=== PATIENT | female | born 1970 | race Hispanic/Latino ===

== ENCOUNTER 2018-01-22 17:45 | Emergency (ER) | payer MEDICAID, OTHER ==
[2018-01-22] MEDS ORDERED: GUAIFENESIN SUGAR-FREE 100 MG/5 ML UDCUP ONE (18:12)
[2018-01-22] MEDS ORDERED: DEXAMETHASONE SOD PHOSPHATE 10MG/ML 1ML VIAL ONE (18:13)
[2018-01-22] MEDS ORDERED: IPRATROPIUM/ALBUTEROL SULFATE 3 ML SOLUTION IH ONE (18:14)
[2018-01-22] MEDS ORDERED: ALBUTEROL SULFATE 0.083% 2.5 MG/3 ML INH IH ONE (19:14)
== END 2018-01-22 20:53 | disposition home or self-care (01) ==
LOC: EDH 17:45
DX: J20.9 Acute bronchitis, unspecified (principal); Z98.890 Other specified postprocedural states
CPT/HCPCS: 71046; 94640 ×2; 96372; 99284; J1100

== ENCOUNTER → 2018-03-04 | Outpatient (CLI) | payer OTHER ==
[2018-03-04 08:23] LABS: BASOPHILS % (AUTO) 1.1 % (0.0-5.0); EOSINOPHILS % (AUTO) 4.3 % (0.0-8.0); LYMPHOCYTES % (AUTO) 23.2 % (21.0-51.0); MEAN CORPUSCULAR HEMOGLOBIN 30.5 pg (27.0-33.0); MEAN CORPUSCULAR HGB CONC 32.6 g/dL (32.0-36.0); MEAN CORPUSCULAR VOLUME 93.5 fL (79-99); MONOCYTES % (AUTO) 2.5 % (3.0-13.0); NEUTROPHILS % (AUTO) 68.9 % (40.0-77.0); NUCLEATED RED BLOOD CELLS 0.1 % (0.0-0.19); PLATELET COUNT (AUTO) 346 K/uL (130-400); RED BLOOD CELL COUNT(AUTO) 4.38 MIL/uL (4.00-5.50); WHITE BLOOD COUNT (AUTO) 5.2 K/uL (4.8-10.8)
[2018-03-04 08:57] LABS: ALBUMIN 3.2 g/dL (3.5-5.0); BILIRUBIN,TOTAL 0.4 mg/dL (0.2-1.0); CREATININE 0.6 mg/dL (0.5-1.5); CRP QUANTITATIVE 14.3 mg/L (0.00-9.0); POTASSIUM 3.6 mmol/L (3.5-5.1); THYROID STIMULATING HORMONE 1.16 uIU/mL (0.36-3.74); TOTAL PROTEIN, SERUM 7.6 g/dL (6.0-8.3)
[2018-03-04 09:23] LABS: ERYTHROCYTE SEDIMENTATION RATE 27 MM/HR (0-20)
== END | disposition home or self-care (01) ==
LOC: LAB 07:20
PROVIDERS: ATTEND Internal Medicine
DX: Z13.220 Encounter for screening for lipoid disorders (principal); Z13.1 Encounter for screening for diabetes mellitus; M19.90 Unspecified osteoarthritis, unspecified site; M25.50 Pain in unspecified joint
CPT/HCPCS: 36415; 80053; 80061; 83036; 84443; 85025; 85651; 86038; 86140; 86215; 86235

== ENCOUNTER 2018-03-28 16:05 | Emergency (ER) | payer OTHER ==
[2018-03-28] MEDS ORDERED: ACETAMINOPHEN 325 MG TAB ONE (16:39)
== END 2018-03-28 16:45 | disposition home or self-care (01) ==
LOC: EDH 16:05
DX: S60.222A Contusion of left hand, initial encounter (principal); M19.90 Unspecified osteoarthritis, unspecified site; W20.8XXA Other cause of strike by thrown, projected or falling object, initial encounter; Y93.89 Activity, other specified; Y92.89 Other specified places as the place of occurrence of the external cause; Y99.0 Civilian activity done for income or pay
CPT/HCPCS: 73130

== ENCOUNTER 2018-05-21 11:56 | Emergency (ER) | payer OTHER ==
[2018-05-21 13:44] LABS: APPEARANCE,URINE Clear (CLEAR); BILIRUBIN,URINE Negative (NEGATIVE); COLOR,URINE Yellow (YELLOW); GLUCOSE, URINE (UA) Negative (NEGATIVE); KETONES,URINE Negative (NEGATIVE); LEUKOCYTE ESTERASE ,URINE Negative (NEGATIVE); NITRATE,URINE Negative (NEGATIVE); OCCULT BLOOD,URINE Negative (NEGATIVE); PH,URINE 6.5 (5.0-8.0); PROTEIN,URINE Negative (NEGATIVE); UROBILINOGEN,URINE 0.2 mg/dL (0.2-1.0)
[2018-05-21 13:50] LABS: HCG,QUAL RESULT NEGATIVE (NEGATIVE)
[2018-05-21 14:08] LABS: RAPID GROUP A STREP NEGATIVE (NEGATIVE)
== END 2018-05-21 14:48 | disposition home or self-care (01) ==
LOC: EDH 11:56
DX: J11.1 Influenza due to unidentified influenza virus with other respiratory manifestations (principal)
CPT/HCPCS: 81003; 81025; 87804; 87880

== ENCOUNTER → 2018-09-27 | Outpatient (CLI) | payer OTHER ==
[2018-09-27 14:00] LABS: BASOPHILS % (AUTO) 0.1 % (0.0-5.0); EOSINOPHILS % (AUTO) 5.3 % (0.0-8.0); HEMATOCRIT 38.8 % (36-48); LYMPHOCYTES % (AUTO) 29.8 % (21.0-51.0); MEAN CORPUSCULAR HEMOGLOBIN 30.2 pg (27.0-33.0); MEAN CORPUSCULAR HGB CONC 33.9 g/dL (32.0-36.0); MEAN CORPUSCULAR VOLUME 89.1 fL (79-99); MONOCYTES % (AUTO) 3.8 % (3.0-13.0); PLATELET COUNT (AUTO) 367 K/uL (130-400); RED BLOOD CELL COUNT(AUTO) 4.36 MIL/uL (4.00-5.50); RED CELL DISTRIBUTION WIDTH 13.9 % (11.0-15.5); WHITE BLOOD COUNT (AUTO) 7.3 K/uL (4.8-10.8)
[2018-09-27 14:20] LABS: T4 (THYROXINE) 6.8 ug/dL (4.7-13.3); THYROID STIMULATING HORMONE 1.3 uIU/mL (0.36-3.74)
== END | disposition home or self-care (01) ==
LOC: RAH 13:05
PROVIDERS: ATTEND Internal Medicine
DX: M85.80 Other specified disorders of bone density and structure, unspecified site (principal); M35.1 Other overlap syndromes; Z79.899 Other long term (current) drug therapy; M19.041 Primary osteoarthritis, right hand; M19.042 Primary osteoarthritis, left hand; M17.11 Unilateral primary osteoarthritis, right knee; M17.12 Unilateral primary osteoarthritis, left knee
CPT/HCPCS: 36415; 71045; 73120; 73560; 84436; 84443; 85025; 86038; 86160; 86215; 86235; 86334; 86431

== ENCOUNTER 2018-11-02 12:19 | Emergency (ER) | payer OTHER ==
[2018-11-02 12:47] LABS: BASOPHILS % (AUTO) 0.1 % (0.0-5.0); EOSINOPHILS % (AUTO) 6.8 % (0.0-8.0); HEMATOCRIT 35.6 % (36-48); LYMPHOCYTES % (AUTO) 30.5 % (21.0-51.0); MEAN CORPUSCULAR HEMOGLOBIN 29.5 pg (27.0-33.0); MEAN CORPUSCULAR HGB CONC 33.7 g/dL (32.0-36.0); MEAN CORPUSCULAR VOLUME 87.7 fL (79-99); MONOCYTES % (AUTO) 4.3 % (3.0-13.0); NEUTROPHILS % (AUTO) 58.3 % (40.0-77.0); PLATELET COUNT (AUTO) 375 K/uL (130-400); RED BLOOD CELL COUNT(AUTO) 4.06 MIL/uL (4.00-5.50); RED CELL DISTRIBUTION WIDTH 14.5 % (11.0-15.5); WHITE BLOOD COUNT (AUTO) 5.9 K/uL (4.8-10.8)
[2018-11-02 12:54] LABS: CREATININE 0.8 mg/dL (0.5-1.5); POTASSIUM 3.5 mmol/L (3.5-5.1)
[2018-11-02 12:59] LABS: ALBUMIN 3.4 g/dL (3.5-5.0); BILIRUBIN,TOTAL 0.2 mg/dL (0.2-1.0); TOTAL PROTEIN, SERUM 8.1 g/dL (6.0-8.3)
[2018-11-02] MEDS ORDERED: DiphenhydrAMINE HCL 50 MG/ML VIAL ONE (13:37)
[2018-11-02] MEDS ORDERED: LIDOCAINE HCL 2% VISCOUS 15 ML UDCUP ONE (13:37)
[2018-11-02] MEDS ORDERED: MAG HYDROX/AL HYDROX/SIMETH ES 30 ML SUSP UDCUP ONE (13:37)
[2018-11-02] MEDS ORDERED: KETOROLAC TROMETHAMINE 30MG/ML ONE (13:37)
[2018-11-02] MEDS ORDERED: PROCHLORPERAZINE EDISYLATE 10 MG/2 ML VIAL ONE (13:38)
[2018-11-02] MEDS ORDERED: FAMOTIDINE/PF 20 MG/2 ML VIAL IV ONE (13:38)
[2018-11-02 14:15] LABS: APPEARANCE,URINE Clear (CLEAR); BILIRUBIN,URINE Negative (NEGATIVE); COLOR,URINE Yellow (YELLOW); GLUCOSE, URINE (UA) Negative (NEGATIVE); KETONES,URINE Negative (NEGATIVE); LEUKOCYTE ESTERASE ,URINE Negative (NEGATIVE); NITRATE,URINE Negative (NEGATIVE); OCCULT BLOOD,URINE Trace (NEGATIVE); PH,URINE 6.5 (5.0-8.0); PROTEIN,URINE Negative (NEGATIVE); UROBILINOGEN,URINE 0.2 mg/dL (0.2-1.0)
[2018-11-02 14:24] LABS: HCG,QUAL RESULT NEGATIVE (NEGATIVE); RBC,URINE 0-1 /HPF (0-1); WBC,URINE 0-1 /HPF (0-1)
[2018-11-02 14:25] LABS: BACTERIA,URINE Rare /HPF (None Seen); SQUAMOUS EPITHELIAL CELL,UR Few /HPF (0-2)
== END 2018-11-02 17:33 | disposition home or self-care (01) ==
LOC: EDH 12:19
DX: R51 Headache (principal); R11.0 Nausea
CPT/HCPCS: 36415; 70450; 80053; 81001; 81025; 83690; 84484; 85025; 93005; 96374; 96375; 99285; J0780; J1200; J1885; J3490

== ENCOUNTER → 2019-03-13 | Outpatient (CLI) | payer OTHER ==
[2019-03-13 15:58] LABS: BASOPHILS % (AUTO) 0.1 % (0.0-5.0); EOSINOPHILS % (AUTO) 4.5 % (0.0-8.0); HEMATOCRIT 39.2 % (36-48); LYMPHOCYTES % (AUTO) 29.8 % (21.0-51.0); MEAN CORPUSCULAR HEMOGLOBIN 30.6 pg (27.0-33.0); MEAN CORPUSCULAR HGB CONC 33.7 g/dL (32.0-36.0); MONOCYTES % (AUTO) 3.4 % (3.0-13.0); NEUTROPHILS % (AUTO) 61.9 % (40.0-77.0); PLATELET COUNT (AUTO) 344 K/uL (130-400); RED BLOOD CELL COUNT(AUTO) 4.31 MIL/uL (4.00-5.50); RED CELL DISTRIBUTION WIDTH 13.5 % (11.0-15.5); WHITE BLOOD COUNT (AUTO) 7.7 K/uL (4.8-10.8)
[2019-03-13 16:17] LABS: ALBUMIN 3.3 g/dL (3.5-5.0); BILIRUBIN,TOTAL 0.1 mg/dL (0.2-1.0); CREATININE 0.7 mg/dL (0.5-1.5); POTASSIUM 3.6 mmol/L (3.5-5.1); TOTAL PROTEIN, SERUM 8.1 g/dL (6.0-8.3)
== END | disposition home or self-care (01) ==
LOC: LAB 15:23
PROVIDERS: ATTEND Internal Medicine
DX: M06.9 Rheumatoid arthritis, unspecified (principal)
CPT/HCPCS: 36415; 80053; 82232; 85025

== ENCOUNTER → 2019-08-09 | Outpatient (CLI) | payer OTHER ==
[2019-08-09 12:57] LABS: APPEARANCE,URINE Clear (CLEAR); BILIRUBIN,URINE Negative (NEGATIVE); COLOR,URINE Yellow (YELLOW); GLUCOSE, URINE (UA) Negative (NEGATIVE); KETONES,URINE Negative (NEGATIVE); LEUKOCYTE ESTERASE ,URINE Negative (NEGATIVE); NITRATE,URINE Negative (NEGATIVE); OCCULT BLOOD,URINE Nonhemolyzed Trace (NEGATIVE); PROTEIN,URINE Negative (NEGATIVE); UROBILINOGEN,URINE 0.2 mg/dL (0.2-1.0)
[2019-08-09 12:57] LABS: BASOPHILS % (AUTO) 0.1 % (0.0-5.0); EOSINOPHILS % (AUTO) 6.2 % (0.0-8.0); HEMATOCRIT 27.7 % (36-48); LYMPHOCYTES % (AUTO) 31.3 % (21.0-51.0); MEAN CORPUSCULAR HEMOGLOBIN 23.6 pg (27.0-33.0); MEAN CORPUSCULAR HGB CONC 30.3 g/dL (32.0-36.0); MEAN CORPUSCULAR VOLUME 77.8 fL (79-99); MONOCYTES % (AUTO) 4.1 % (3.0-13.0); NEUTROPHILS % (AUTO) 58.2 % (40.0-77.0); PLATELET COUNT (AUTO) 497 K/uL (130-400); RED BLOOD CELL COUNT(AUTO) 3.56 MIL/uL (4.00-5.50); RED CELL DISTRIBUTION WIDTH 14.4 % (11.0-15.5); WHITE BLOOD COUNT (AUTO) 7.3 K/uL (4.8-10.8)
[2019-08-09 13:01] LABS: BACTERIA,URINE Rare /HPF (None Seen); RBC,URINE 0-1 /HPF (0-1); SQUAMOUS EPITHELIAL CELL,UR Rare /HPF (0-2); WBC,URINE 0-1 /HPF (0-1)
[2019-08-09 13:28] LABS: ALBUMIN 3.4 g/dL (3.5-5.0); BILIRUBIN,TOTAL 0.3 mg/dL (0.2-1.0); CREATININE 0.7 mg/dL (0.5-1.5); POTASSIUM 3.6 mmol/L (3.5-5.1); TOTAL PROTEIN, SERUM 8.4 g/dL (6.0-8.3)
== END | disposition home or self-care (01) ==
LOC: LAB 11:29
PROVIDERS: ATTEND Internal Medicine
DX: M05.79 Rheumatoid arthritis with rheumatoid factor of multiple sites without organ or systems involvement (principal); Z79.899 Other long term (current) drug therapy
CPT/HCPCS: 36415; 80053; 81001; 85025; 86038; 86215; 86235

== ENCOUNTER → 2019-12-22 | Outpatient (CLI) | payer OTHER | END | disposition home or self-care (01) | LOC: RAH 15:08 | PROVIDERS: ATTEND Internal Medicine | DX: Z12.31 Encounter for screening mammogram for malignant neoplasm of breast (principal) | CPT/HCPCS: 77067 ==

== ENCOUNTER → 2020-04-23 | Outpatient (CLI) | payer OTHER | END | disposition home or self-care (01) | LOC: LAB 12:00 | PROVIDERS: ATTEND Family Medicine | DX: R53.83 Other fatigue (principal) | CPT/HCPCS: 36415; 82670; 84403 ==

== ENCOUNTER → 2020-05-30 | Outpatient (CLI) | payer OTHER ==
[2020-05-31 08:43] LABS: BASOPHILS % (AUTO) 0.1 % (0.0-5.0); EOSINOPHILS % (AUTO) 3.7 % (0.0-8.0); HEMATOCRIT 40.4 % (36-48); MEAN CORPUSCULAR HEMOGLOBIN 30.3 pg (27.0-33.0); MEAN CORPUSCULAR HGB CONC 33.2 g/dL (32.0-36.0); MEAN CORPUSCULAR VOLUME 91.4 fL (79-99); MONOCYTES % (AUTO) 3.3 % (3.0-13.0); NEUTROPHILS % (AUTO) 56.6 % (40.0-77.0); PLATELET COUNT (AUTO) 354 K/uL (130-400); RED BLOOD CELL COUNT(AUTO) 4.42 MIL/uL (4.00-5.50); RED CELL DISTRIBUTION WIDTH 13.2 % (11.0-15.5); WHITE BLOOD COUNT (AUTO) 7.2 K/uL (4.8-10.8)
[2020-05-31 09:06] LABS: ALBUMIN 3.1 g/dL (3.5-5.0); BILIRUBIN,TOTAL 0.4 mg/dL (0.2-1.0); CREATININE 0.7 mg/dL (0.5-1.5); POTASSIUM 3.9 mmol/L (3.5-5.1); THYROID STIMULATING HORMONE 1.31 uIU/mL (0.36-3.74); TOTAL PROTEIN, SERUM 8.1 g/dL (6.0-8.3)
== END | disposition home or self-care (01) ==
LOC: LAB 11:49
PROVIDERS: ATTEND Internal Medicine
DX: Z00.00 Encounter for general adult medical examination without abnormal findings (principal); Z13.220 Encounter for screening for lipoid disorders; Z13.29 Encounter for screening for other suspected endocrine disorder; M35.00 Sjogren syndrome, unspecified; M06.9 Rheumatoid arthritis, unspecified
CPT/HCPCS: 36415; 80053; 80061; 84443; 85025

== ENCOUNTER → 2020-07-18 | Outpatient (CLI) | payer OTHER | END | disposition home or self-care (01) | LOC: LAB 13:10 | PROVIDERS: ATTEND Family Medicine | DX: R53.83 Other fatigue (principal) | CPT/HCPCS: 36415; 84403 ==

== ENCOUNTER 2020-07-19 21:45 | Emergency (ER) | payer OTHER ==
[2020-07-19] MEDS ORDERED: KETOROLAC 60 MG VIAL (30MG/ML) ONE (22:08)
== END 2020-07-19 22:38 | disposition home or self-care (01) ==
LOC: EDH 21:45
DX: M43.6 Torticollis (principal); M19.90 Unspecified osteoarthritis, unspecified site
CPT/HCPCS: 96372; 99283; J1885

== ENCOUNTER 2020-08-02 21:05 | Emergency (ER) | payer OTHER ==
[2020-08-02 21:29] LABS: APPEARANCE,URINE Clear (CLEAR); BILIRUBIN,URINE Negative (NEGATIVE); COLOR,URINE Yellow (YELLOW); GLUCOSE, URINE (UA) Negative (NEGATIVE); KETONES,URINE Negative (NEGATIVE); LEUKOCYTE ESTERASE ,URINE Negative (NEGATIVE); NITRATE,URINE Negative (NEGATIVE); OCCULT BLOOD,URINE Negative (NEGATIVE); PH,URINE >=9.0 (5.0-8.0); PROTEIN,URINE Negative (NEGATIVE); UROBILINOGEN,URINE 0.2 mg/dL (0.2-1.0)
[2020-08-02 21:35] LABS: RBC,URINE 0-1 /HPF (0-1); WBC,URINE 0-1 /HPF (0-1)
[2020-08-02 21:36] LABS: BACTERIA,URINE Rare /HPF (None Seen); SQUAMOUS EPITHELIAL CELL,UR Rare /HPF (0-2)
[2020-08-02] MEDS ORDERED: LORAZEPAM 1 MG TABLET ONE (21:39)
[2020-08-02 21:51] LABS: BASOPHILS % (AUTO) 0.2 % (0.0-5.0); EOSINOPHILS % (AUTO) 5.8 % (0.0-8.0); HEMATOCRIT 36.5 % (36-48); LYMPHOCYTES % (AUTO) 27.6 % (21.0-51.0); MEAN CORPUSCULAR HGB CONC 33.4 g/dL (32.0-36.0); MEAN CORPUSCULAR VOLUME 89.7 fL (79-99); NEUTROPHILS % (AUTO) 61.2 % (40.0-77.0); PLATELET COUNT (AUTO) 361 K/uL (130-400); RED BLOOD CELL COUNT(AUTO) 4.07 MIL/uL (4.00-5.50); RED CELL DISTRIBUTION WIDTH 12.9 % (11.0-15.5); WHITE BLOOD COUNT (AUTO) 6.4 K/uL (4.8-10.8)
[2020-08-02 22:00] LABS: CREATININE 0.7 mg/dL (0.5-1.5); POTASSIUM 3.4 mmol/L (3.5-5.1)
[2020-08-02 22:09] LABS: ALBUMIN 3.3 g/dL (3.5-5.0); BILIRUBIN,TOTAL 0.2 mg/dL (0.2-1.0)
[2020-08-02] MEDS ORDERED: POTASSIUM BICARB/CIT AC 25 MEQ TABLET.EFF ONE (22:29)
== END 2020-08-02 22:39 | disposition home or self-care (01) ==
LOC: EDH 21:05
DX: R07.89 Other chest pain (principal); F41.9 Anxiety disorder, unspecified; M19.90 Unspecified osteoarthritis, unspecified site; Z98.890 Other specified postprocedural states
CPT/HCPCS: 36415; 71045; 80053; 81001; 81025; 84484; 84702; 85025; 93005

== ENCOUNTER → 2020-09-04 | Outpatient (CLI) | payer OTHER ==
[2020-09-04 14:39] LABS: BASOPHILS % (AUTO) 0.5 % (0.0-5.0); HEMATOCRIT 36.3 % (36-48); LYMPHOCYTES % (AUTO) 27.2 % (21.0-51.0); MEAN CORPUSCULAR HGB CONC 33.3 g/dL (32.0-36.0); MEAN CORPUSCULAR VOLUME 90.1 fL (79-99); MONOCYTES % (AUTO) 5.4 % (3.0-13.0); NEUTROPHILS % (AUTO) 61.6 % (40.0-77.0); PLATELET COUNT (AUTO) 438 K/uL (130-400); RED BLOOD CELL COUNT(AUTO) 4.03 MIL/uL (4.00-5.50); RED CELL DISTRIBUTION WIDTH 12.8 % (11.0-15.5); WHITE BLOOD COUNT (AUTO) 6.6 K/uL (4.8-10.8)
[2020-09-04 14:54] LABS: ALBUMIN 3.1 g/dL (3.5-5.0); BILIRUBIN,TOTAL 0.2 mg/dL (0.2-1.0); CREATININE 0.8 mg/dL (0.5-1.5); CRP QUANTITATIVE 29.7 mg/L (0.00-9.0); POTASSIUM 3.7 mmol/L (3.5-5.1); TOTAL PROTEIN, SERUM 8.3 g/dL (6.0-8.3)
[2020-09-04 15:41] LABS: ERYTHROCYTE SEDIMENTATION RATE 65 MM/HR (0-20)
[2020-09-05 07:17] LABS: HEPATITIS Bs ANTIGEN SCREEN P Negative (Negative)
== END | disposition home or self-care (01) ==
LOC: LAB 14:07
PROVIDERS: ATTEND Internal Medicine
DX: M06.4 Inflammatory polyarthropathy (principal)
CPT/HCPCS: 36415; 80053; 85025; 85651; 86140; 86200; 86431; 86480; 86704; 87340

== ENCOUNTER → 2021-03-20 | Outpatient (CLI) | payer OTHER | END | disposition home or self-care (01) | LOC: RAH 08:55 | PROVIDERS: ATTEND Internal Medicine | DX: K80.20 Calculus of gallbladder without cholecystitis without obstruction (principal); R10.9 Unspecified abdominal pain | CPT/HCPCS: 76700 ==

== ENCOUNTER → 2021-04-28 | Outpatient (CLI) | payer OTHER | END | disposition home or self-care (01) | LOC: LAB 15:33 | PROVIDERS: ATTEND Internal Medicine | DX: A04.8 Other specified bacterial intestinal infections (principal) | CPT/HCPCS: 83013 ==

== ENCOUNTER 2021-05-31 11:15 | Emergency (ER) | payer OTHER ==
[~2021-05-31] VITALS: Ht 162.6 cm; Wt 68.0 kg
[2021-05-31] MEDS ORDERED: ACETAMINOPHEN 500 MG TABLET PO SCH (12:00)
[2021-05-31 12:41] VITALS: BP 108/57
== END 2021-05-31 12:51 | disposition home or self-care (01) ==
LOC: EDH 11:15
DX: J02.9 Acute pharyngitis, unspecified (principal); M19.90 Unspecified osteoarthritis, unspecified site; Z20.822 Contact with and (suspected) exposure to COVID-19
CPT/HCPCS: 87635; 87880; 99283; C9803

== ENCOUNTER → 2021-08-11 | Outpatient (CLI) | payer OTHER ==
[2021-08-14 17:13] LABS: BASOPHILS % (AUTO) 0.2 % (0.0-5.0); EOSINOPHILS % (AUTO) 4.9 % (0.0-8.0); HEMATOCRIT 39.3 % (36-48); LYMPHOCYTES % (AUTO) 45.2 % (21.0-51.0); MEAN CORPUSCULAR HEMOGLOBIN 31.6 pg (27.0-33.0); MEAN CORPUSCULAR HGB CONC 34.1 g/dL (32.0-36.0); MEAN CORPUSCULAR VOLUME 92.7 fL (79-99); MONOCYTES % (AUTO) 3.2 % (3.0-13.0); NEUTROPHILS % (AUTO) 46.3 % (40.0-77.0); PLATELET COUNT (AUTO) 282 K/uL (130-400); RED BLOOD CELL COUNT(AUTO) 4.24 MIL/uL (4.00-5.50); RED CELL DISTRIBUTION WIDTH 13.8 % (11.0-15.5); WHITE BLOOD COUNT (AUTO) 5.3 K/uL (4.8-10.8)
[2021-08-14 17:26] LABS: ALANINE AMINOTRANSFERASE 41 U/L (12-78); ALBUMIN 3.6 g/dL (3.5-5.0); ASPARTATE AMINOTRANSFERASE 25 U/L (10-37); BILIRUBIN,TOTAL 0.2 mg/dL (0.2-1.0); CARBON DIOXIDE 27 mmol/L (21-32); CHLORIDE 103 mmol/L (101-111); CREATININE 0.8 mg/dL (0.5-1.5); GLOMERULAR FILTR. RATE CALC 81 mL/min (>60); GLUCOSE,RANDOM 95 mg/dL (70-105); POTASSIUM 3.8 mmol/L (3.5-5.1); SODIUM SERUM 138 mmol/L (136-145); TOTAL PROTEIN, SERUM 7.4 g/dL (6.0-8.3); UREA NITROGEN, BLOOD 13 mg/dL (7-18)
[2021-08-14 17:27] LABS: CRP QUANTITATIVE < 2.00 mg/L (0.00-9.0)
[2021-08-14 18:20] LABS: ERYTHROCYTE SEDIMENTATION RATE 4 MM/HR (0-30)
[2021-08-15 20:23] LABS: HEPATITIS B SURFACE ANTIGEN Non-Reactive (Negative)
[2021-08-15 20:24] LABS: HEPATITIS A IGM ANTIBODY Non-Reactive (Negative); HEPATITIS B CORE IGM ANTIBODY Non-Reactive (Negative); HEPATITIS C ANTIBODY Non-Reactive (NEGATIVE)
== END | disposition home or self-care (01) ==
LOC: LAB 07:41
PROVIDERS: ATTEND Internal Medicine
DX: Z79.899 Other long term (current) drug therapy (principal)
CPT/HCPCS: 36415; 80053; 80074; 85025; 85651; 86140; 86200; 86431; 86480

== ENCOUNTER 2021-09-04 16:09 | Emergency (ER) | payer OTHER ==
[~2021-09-04] VITALS: Ht 162.6 cm; Wt 68.0 kg
[2021-09-04 16:13] VITALS: BP 122/65
[2021-09-04] MEDS ORDERED: CEFTRIAXONE 1G VIAL IM ONE (17:00)
[2021-09-04] MEDS ORDERED: PHENAZOPYRIDINE HCL 200 MG TABLET PO ONE (17:00)
[2021-09-04] MEDS ORDERED: LIDOCAINE HCL-MPF 1% 2ML VIAL ONE (17:33)
[2021-09-04] MEDS ORDERED: CEPH500B PO (18:02)
[2021-09-04] MEDS ORDERED: PHEN-847 PO (18:02)
[2021-09-04 18:07] LABS: APPEARANCE,URINE Cloudy (CLEAR); BILIRUBIN,URINE Negative (NEGATIVE); COLOR,URINE Yellow (YELLOW); GLUCOSE, URINE (UA) Negative (NEGATIVE); KETONES,URINE Negative (NEGATIVE); LEUKOCYTE ESTERASE ,URINE Large (NEGATIVE); NITRATE,URINE Positive (NEGATIVE); OCCULT BLOOD,URINE Large (NEGATIVE); PH,URINE 7.5 (5.0-8.0); PROTEIN,URINE POS 2+ mg/dL (NEGATIVE); UROBILINOGEN,URINE 0.2 mg/dL (0.2-1.0)
[2021-09-04 18:20] LABS: BACTERIA,URINE Few /HPF (None Seen)
[2021-09-04 18:21] LABS: WBC,URINE 26-50 /HPF (0-1)
== END 2021-09-04 18:16 | disposition home or self-care (01) ==
LOC: EDH 16:09
DX: R35.0 Frequency of micturition (principal); R30.0 Dysuria; M19.90 Unspecified osteoarthritis, unspecified site; Z79.899 Other long term (current) drug therapy; Z98.890 Other specified postprocedural states
CPT/HCPCS: 81001; 87077; 87088; 87186; 96372; 99283; J0696; J3490

== ENCOUNTER → 2021-09-24 | Outpatient (CLI) | payer OTHER ==
[~2021-09-24] MED LIST: CEPH500B PO; PHEN-847 PO
== END | disposition home or self-care (01) ==
LOC: DAH 10:00 → EDSTATUS 10-01 07:00
PROVIDERS: ATTEND Internal Medicine
DX: Z12.11 Encounter for screening for malignant neoplasm of colon (principal); R10.10 Upper abdominal pain, unspecified; R14.0 Abdominal distension (gaseous); Z53.8 Procedure and treatment not carried out for other reasons
CPT/HCPCS: 87635; C9803

== ENCOUNTER → 2021-10-24 | Outpatient (CLI) | payer OTHER | END | disposition home or self-care (01) | LOC: DAH 10:00 → EDSTATUS 10-28 08:00 | PROVIDERS: ATTEND Internal Medicine | DX: Z12.11 Encounter for screening for malignant neoplasm of colon (principal); U07.1 COVID-19 | CPT/HCPCS: 87426 ==

== ENCOUNTER → 2021-11-17 | Outpatient (CLI) | payer OTHER ==
[2021-11-17 16:12] LABS: BASOPHILS % (AUTO) 0.2 % (0.0-5.0); EOSINOPHILS % (AUTO) 7.5 % (0.0-8.0); HEMATOCRIT 39.7 % (36-48); LYMPHOCYTES % (AUTO) 43.2 % (21.0-51.0); MEAN CORPUSCULAR HEMOGLOBIN 32.2 pg (27.0-33.0); MEAN CORPUSCULAR HGB CONC 34.8 g/dL (32.0-36.0); MEAN CORPUSCULAR VOLUME 92.8 fL (79-99); MONOCYTES % (AUTO) 2.7 % (3.0-13.0); NEUTROPHILS % (AUTO) 46.2 % (40.0-77.0); PLATELET COUNT (AUTO) 269 K/uL (130-400); RED BLOOD CELL COUNT(AUTO) 4.28 MIL/uL (4.00-5.50); RED CELL DISTRIBUTION WIDTH 12.5 % (11.0-15.5); WHITE BLOOD COUNT (AUTO) 4.8 K/uL (4.8-10.8)
[2021-11-17 16:31] LABS: ALANINE AMINOTRANSFERASE 29 U/L (12-78); ALBUMIN 3.7 g/dL (3.5-5.0); ASPARTATE AMINOTRANSFERASE 17 U/L (10-37); CARBON DIOXIDE 28 mmol/L (21-32); CHLORIDE 103 mmol/L (101-111); CREATININE 0.8 mg/dL (0.5-1.5); GLOMERULAR FILTR. RATE CALC 81 mL/min (>60); GLUCOSE,RANDOM 91 mg/dL (70-105); POTASSIUM 3.4 mmol/L (3.5-5.1); SODIUM SERUM 137 mmol/L (136-145); TOTAL PROTEIN, SERUM 7.6 g/dL (6.0-8.3); UREA NITROGEN, BLOOD 10 mg/dL (7-18)
[2021-11-17 16:39] LABS: CRP QUANTITATIVE < 2.00 mg/L (0.00-9.0)
[2021-11-17 17:28] LABS: ERYTHROCYTE SEDIMENTATION RATE 5 MM/HR (0-30)
== END | disposition home or self-care (01) ==
LOC: LAB 15:46
PROVIDERS: ATTEND Internal Medicine
DX: M05.79 Rheumatoid arthritis with rheumatoid factor of multiple sites without organ or systems involvement (principal)
CPT/HCPCS: 36415; 80053; 85025; 85651; 86140

== ENCOUNTER → 2021-11-24 | Outpatient (CLI) | payer OTHER ==
[~2021-11-24] MED LIST changes: +ASCO500C18 PO; +FERROUS SULFATE PO
[2021-11-24 08:11] LABS: BASOPHILS % (AUTO) 0.2 % (0.0-5.0); EOSINOPHILS % (AUTO) 7.3 % (0.0-8.0); HEMATOCRIT 42.8 % (36-48); LYMPHOCYTES % (AUTO) 58.2 % (21.0-51.0); MEAN CORPUSCULAR HEMOGLOBIN 32.2 pg (27.0-33.0); MEAN CORPUSCULAR HGB CONC 34.1 g/dL (32.0-36.0); MEAN CORPUSCULAR VOLUME 94.3 fL (79-99); NEUTROPHILS % (AUTO) 30.1 % (40.0-77.0); PLATELET COUNT (AUTO) 284 K/uL (130-400); RED BLOOD CELL COUNT(AUTO) 4.54 MIL/uL (4.00-5.50); RED CELL DISTRIBUTION WIDTH 12.8 % (11.0-15.5); WHITE BLOOD COUNT (AUTO) 4.8 K/uL (4.8-10.8)
[2021-11-24 08:37] LABS: ALBUMIN 3.8 g/dL (3.5-5.0); CREATININE 0.7 mg/dL (0.5-1.5); POTASSIUM 3.7 mmol/L (3.5-5.1); TOTAL PROTEIN, SERUM 7.8 g/dL (6.0-8.3)
[2021-11-24 08:57] LABS: THYROID STIMULATING HORMONE 0.84 uIU/mL (0.36-3.74)
[2021-11-25 16:26] VITALS: BP 102/47
== END | disposition home or self-care (01) ==
LOC: LAB 07:36
PROVIDERS: ATTEND Internal Medicine
DX: Z00.00 Encounter for general adult medical examination without abnormal findings (principal); Z13.220 Encounter for screening for lipoid disorders; Z13.29 Encounter for screening for other suspected endocrine disorder
CPT/HCPCS: 36415; 80053; 80061; 84443; 85025

== ENCOUNTER 2021-11-25 15:27 | Day surgery (SDC) | payer OTHER ==
[~2021-11-25] VITALS: Ht 162.6 cm; Wt 69.0 kg
[2021-11-25] MEDS ORDERED: PROPOFOL 10 MG/ML 20ML VIAL IV ONE (16:02)
[2021-11-25 16:31] VITALS: BP 91/40
[2021-11-25 16:35] VITALS: BP 88/39
[2021-11-25 16:40] VITALS: BP 93/44
[2021-11-25 16:46] VITALS: BP 97/45
[2021-11-25 17:13] VITALS: BP 111/56
== END 2021-11-25 17:14 | disposition home or self-care (01) ==
LOC: DAH 15:27 → ENDO 15:27
PROVIDERS: ATTEND Internal Medicine Gastroenterology
DX: R14.0 Abdominal distension (gaseous) (principal); R10.10 Upper abdominal pain, unspecified; D12.5 Benign neoplasm of sigmoid colon; D12.8 Benign neoplasm of rectum; K63.5 Polyp of colon; K64.0 First degree hemorrhoids; K29.50 Unspecified chronic gastritis without bleeding; K31.89 Other diseases of stomach and duodenum; Z98.890 Other specified postprocedural states; Z98.891 History of uterine scar from previous surgery; Z79.01 Long term (current) use of anticoagulants; Z79.899 Other long term (current) drug therapy
CPT/HCPCS: 87426; 45385; 43239; J2704

== ENCOUNTER → 2022-02-23 | Outpatient (CLI) | payer OTHER ==
[~2022-02-23] MED LIST changes: -CEPH500B PO; +CYCL10TA16 PO; +NAPR-1180 PO; +OSEL75 PO; -PHEN-847 PO
[2022-02-23 08:02] LABS: BASOPHILS % (AUTO) 0.2 % (0.0-5.0); EOSINOPHILS % (AUTO) 4.6 % (0.0-8.0); HEMATOCRIT 42.9 % (36-48); LYMPHOCYTES % (AUTO) 33.5 % (21.0-51.0); MEAN CORPUSCULAR HEMOGLOBIN 31.8 pg (27.0-33.0); MEAN CORPUSCULAR VOLUME 93.5 fL (79-99); MONOCYTES % (AUTO) 3.2 % (3.0-13.0); NEUTROPHILS % (AUTO) 58.3 % (40.0-77.0); PLATELET COUNT (AUTO) 267 K/uL (130-400); RED BLOOD CELL COUNT(AUTO) 4.59 MIL/uL (4.00-5.50); RED CELL DISTRIBUTION WIDTH 12.8 % (11.0-15.5); WHITE BLOOD COUNT (AUTO) 5.9 K/uL (4.8-10.8)
[2022-02-23 08:20] LABS: ALANINE AMINOTRANSFERASE 25 U/L (12-78); ALBUMIN 3.6 g/dL (3.5-5.0); ASPARTATE AMINOTRANSFERASE 21 U/L (10-37); CARBON DIOXIDE 30 mmol/L (21-32); CHLORIDE 106 mmol/L (101-111); CREATININE 0.7 mg/dL (0.5-1.5); GLOMERULAR FILTR. RATE CALC 94 mL/min (>60); GLUCOSE,RANDOM 93 mg/dL (70-105); POTASSIUM 4.8 mmol/L (3.5-5.1); SODIUM SERUM 140 mmol/L (136-145); TOTAL PROTEIN, SERUM 7.6 g/dL (6.0-8.3); UREA NITROGEN, BLOOD 8 mg/dL (7-18)
[2022-02-23 08:24] LABS: CRP QUANTITATIVE < 2.00 mg/L (0.00-9.0)
[2022-02-23 09:16] LABS: ERYTHROCYTE SEDIMENTATION RATE 11 MM/HR (0-30)
== END | disposition home or self-care (01) ==
LOC: RAH 07:36
PROVIDERS: ATTEND Internal Medicine
DX: Z79.899 Other long term (current) drug therapy (principal)
CPT/HCPCS: 36415; 80053; 85025; 85651; 86140

== ENCOUNTER → 2022-05-20 | Outpatient (CLI) | payer OTHER ==
[2022-05-20 07:47] LABS: BASOPHILS % (AUTO) 0.2 % (0.0-5.0); EOSINOPHILS % (AUTO) 4.1 % (0.0-8.0); HEMATOCRIT 43.2 % (36-48); LYMPHOCYTES % (AUTO) 52.9 % (21.0-51.0); MEAN CORPUSCULAR HEMOGLOBIN 31.7 pg (27.0-33.0); MEAN CORPUSCULAR HGB CONC 33.8 g/dL (32.0-36.0); MEAN CORPUSCULAR VOLUME 93.7 fL (79-99); MONOCYTES % (AUTO) 6.1 % (3.0-13.0); NEUTROPHILS % (AUTO) 36.5 % (40.0-77.0); PLATELET COUNT (AUTO) 315 K/uL (130-400); RED BLOOD CELL COUNT(AUTO) 4.61 MIL/uL (4.00-5.50); RED CELL DISTRIBUTION WIDTH 13.1 % (11.0-15.5); WHITE BLOOD COUNT (AUTO) 4.6 K/uL (4.8-10.8)
[2022-05-20 08:07] LABS: ALBUMIN 3.7 g/dL (3.5-5.0); CREATININE 0.7 mg/dL (0.5-1.5); POTASSIUM 3.8 mmol/L (3.5-5.1)
[2022-05-20 08:52] LABS: THYROID STIMULATING HORMONE 0.97 uIU/mL (0.36-3.74)
== END | disposition home or self-care (01) ==
LOC: LAB 07:13
PROVIDERS: ATTEND Internal Medicine
DX: Z00.00 Encounter for general adult medical examination without abnormal findings (principal); E83.51 Hypocalcemia; K21.9 Gastro-esophageal reflux disease without esophagitis
CPT/HCPCS: 36415; 80053; 80061; 84443; 85025

== ENCOUNTER → 2022-05-28 | Outpatient (CLI) | payer OTHER ==
[2022-05-28 07:46] LABS: BASOPHILS % (AUTO) 0.2 % (0.0-5.0); EOSINOPHILS % (AUTO) 4.7 % (0.0-8.0); HEMATOCRIT 42.8 % (36-48); LYMPHOCYTES % (AUTO) 55.1 % (21.0-51.0); MEAN CORPUSCULAR HEMOGLOBIN 31.3 pg (27.0-33.0); MEAN CORPUSCULAR HGB CONC 33.2 g/dL (32.0-36.0); MEAN CORPUSCULAR VOLUME 94.3 fL (79-99); NEUTROPHILS % (AUTO) 36.8 % (40.0-77.0); PLATELET COUNT (AUTO) 280 K/uL (130-400); RED BLOOD CELL COUNT(AUTO) 4.54 MIL/uL (4.00-5.50); RED CELL DISTRIBUTION WIDTH 13.2 % (11.0-15.5); WHITE BLOOD COUNT (AUTO) 5.1 K/uL (4.8-10.8)
[2022-05-28 08:07] LABS: ALANINE AMINOTRANSFERASE 57 U/L (12-78); ALBUMIN 3.7 g/dL (3.5-5.0); ASPARTATE AMINOTRANSFERASE 39 U/L (10-37); CARBON DIOXIDE 32 mmol/L (21-32); CHLORIDE 103 mmol/L (101-111); CREATININE 0.8 mg/dL (0.5-1.5); GLOMERULAR FILTR. RATE CALC 80 mL/min (>60); GLUCOSE,RANDOM 103 mg/dL (70-105); POTASSIUM 3.8 mmol/L (3.5-5.1); SODIUM SERUM 139 mmol/L (136-145); TOTAL PROTEIN, SERUM 7.6 g/dL (6.0-8.3); UREA NITROGEN, BLOOD 10 mg/dL (7-18)
[2022-05-28 08:11] LABS: CRP QUANTITATIVE < 2.00 mg/L (0.00-9.0)
[2022-05-28 08:44] LABS: ERYTHROCYTE SEDIMENTATION RATE 5 MM/HR (0-30)
== END | disposition home or self-care (01) ==
LOC: LAB 07:27
PROVIDERS: ATTEND Internal Medicine
DX: Z78.9 Other specified health status (principal)
CPT/HCPCS: 36415; 80053; 85025; 85651; 86140

== ENCOUNTER 2022-07-09 16:27 | Emergency (ER) | payer OTHER ==
[~2022-07-09] VITALS: Ht 162.6 cm; Wt 67.1 kg
[2022-07-09 17:00] LABS: BASOPHILS % (AUTO) 0.3 % (0.0-5.0); EOSINOPHILS % (AUTO) 6.7 % (0.0-8.0); LYMPHOCYTES % (AUTO) 34.3 % (21.0-51.0); MEAN CORPUSCULAR HEMOGLOBIN 31.5 pg (27.0-33.0); MEAN CORPUSCULAR HGB CONC 34.4 g/dL (32.0-36.0); MEAN CORPUSCULAR VOLUME 91.5 fL (79-99); NEUTROPHILS % (AUTO) 55.6 % (40.0-77.0); PLATELET COUNT (AUTO) 224 K/uL (130-400); RED BLOOD CELL COUNT(AUTO) 4.48 MIL/uL (4.00-5.50); RED CELL DISTRIBUTION WIDTH 13.1 % (11.0-15.5); WHITE BLOOD COUNT (AUTO) 6.7 K/uL (4.8-10.8)
[2022-07-09 17:11] LABS: CREATININE 0.7 mg/dL (0.5-1.5); POTASSIUM 3.4 mmol/L (3.5-5.1)
[2022-07-09 17:20] LABS: ALBUMIN 3.8 g/dL (3.5-5.0); TOTAL PROTEIN, SERUM 7.9 g/dL (6.0-8.3)
[2022-07-09 18:12] LABS: APPEARANCE,URINE CLEAR (CLEAR); BILIRUBIN,URINE NEGATIVE (NEGATIVE); COLOR,URINE COLORLESS (YELLOW); GLUCOSE, URINE (UA) NEGATIVE (NEGATIVE); KETONES,URINE NEGATIVE (NEGATIVE); LEUKOCYTE ESTERASE ,URINE NEGATIVE Leu/uL (NEGATIVE); NITRATE,URINE NEGATIVE (NEGATIVE); PROTEIN,URINE NEGATIVE (NEGATIVE); UROBILINOGEN,URINE 0.2 mg/dL (0.2-1.0)
[2022-07-09 18:13] LABS: MUCUS,URINE RARE LPF (None Seen); RBC,URINE 0-1 /HPF (0-1); SQUAMOUS EPITHELIAL CELL,UR RARE /HPF (0-2)
[2022-07-09 18:14] LABS: HCG,QUALITATIVE URINE NEGATIVE (NEGATIVE)
[2022-07-09] MEDS ORDERED: PRED20TA3 PO (18:52)
[2022-07-09] MEDS ORDERED: ALBU2SYR3 PO (18:52)
[2022-07-09] MEDS ORDERED: DOXY-469 PO (18:52)
[2022-07-09] MEDS ORDERED: IPRATROPIUM/ALBUTEROL SULFATE 3 ML SOLUTION IH ONE (19:00)
[2022-07-09] MEDS ORDERED: CEFTRIAXONE 1G VIAL IVP ONE (19:00)
[2022-07-09] MEDS ORDERED: PREDNISONE 20 MG TABLET PO ONE (19:00)
[2022-07-09 19:14] VITALS: BP 129/75
== END 2022-07-09 19:54 | disposition home or self-care (01) ==
LOC: EDH 16:27
DX: J18.9 Pneumonia, unspecified organism (principal); M19.90 Unspecified osteoarthritis, unspecified site; Z20.822 Contact with and (suspected) exposure to COVID-19; Z79.899 Other long term (current) drug therapy; Z98.890 Other specified postprocedural states
CPT/HCPCS: 99285; 96374; 71045; 87635; 84484; 80053; 85025; 87880; 87804 ×2; 83605; 81001; 81025; 36415; 93005; 94640; C9803; J0696 ×2

== ENCOUNTER 2022-07-21 10:04 | Day surgery (SDC) | payer OTHER ==
[~2022-07-21] VITALS: Ht 162.6 cm; Wt 66.7 kg
[~2022-07-21 10:04] MED LIST changes: +BIOTIN PO; +CHOL500051 PO; -CYCL10TA16 PO; +MAGN400T40 PO; -NAPR-1180 PO; -OSEL75 PO; +ZINC220T4 PO
[2022-07-21 10:21] VITALS: BP 94/45
[2022-07-21] MEDS ORDERED: PROPOFOL 10 MG/ML 20ML VIAL IV ONE (12:12)
[2022-07-21] MEDS ORDERED: GLYCOPYRROLATE 1 MG/5 ML SYRINGE ONE (12:14)
[2022-07-21] MEDS ORDERED: LIDOCAINE PF 100MG/5ML (2%) SYRINGE 5ML ONE (12:15)
[2022-07-21 13:28] VITALS: BP 104/47
[2022-07-21 13:33] VITALS: BP 105/50
== END 2022-07-21 14:15 | disposition home or self-care (01) ==
LOC: ENDO 10:04 → DAH 10:04 → ENDO 14:15
PROVIDERS: ATTEND Internal Medicine Gastroenterology
DX: R19.7 Diarrhea, unspecified (principal); K21.00 Gastro-esophageal reflux disease with esophagitis, without bleeding; K31.89 Other diseases of stomach and duodenum; K29.00 Acute gastritis without bleeding; K29.50 Unspecified chronic gastritis without bleeding; M06.9 Rheumatoid arthritis, unspecified; Z20.822 Contact with and (suspected) exposure to COVID-19; Z87.19 Personal history of other diseases of the digestive system; Z79.899 Other long term (current) drug therapy; Z98.890 Other specified postprocedural states; Z87.891 Personal history of nicotine dependence
CPT/HCPCS: 87635; 43239; 81025; C9803; J3490; J2001; J2704; A4620; A4215 ×2; A4223; A4657; A4222; A4221; A4663; J7030; A4606

== ENCOUNTER → 2022-08-21 | Outpatient (CLI) | payer OTHER ==
[2022-08-21 11:04] LABS: CHOLESTEROL 201 mg/dL (<200); HDL CHOLESTEROL 66 mg/dL (35-85); LDL DIRECT 124 mg/dL (0-99); TRIGLYCERIDES 56 mg/dL (30-200)
== END | disposition home or self-care (01) ==
LOC: LAB 07:39
PROVIDERS: ATTEND Internal Medicine Gastroenterology
DX: K76.0 Fatty (change of) liver, not elsewhere classified (principal)
CPT/HCPCS: 36415; 80061

== ENCOUNTER → 2022-10-05 | Outpatient (CLI) | payer OTHER ==
[~2022-10-05] MED LIST changes: +KETO10TA2 PO
== END | disposition home or self-care (01) ==
LOC: RAH 11:30
PROVIDERS: ATTEND Internal Medicine
DX: M19.042 Primary osteoarthritis, left hand (principal); M19.041 Primary osteoarthritis, right hand; M79.642 Pain in left hand; M79.641 Pain in right hand

== ENCOUNTER 2022-10-06 07:20 | Emergency (ER) | payer OTHER ==
[~2022-10-06] VITALS: Ht 162.6 cm; Wt 67.6 kg
[~2022-10-06 07:20] MED LIST changes: -KETO10TA2 PO
[2022-10-06 07:43] LABS: HEMATOCRIT 41.3 % (36-48); MEAN CORPUSCULAR HEMOGLOBIN 31.8 pg (27.0-33.0); MEAN CORPUSCULAR HGB CONC 34.9 g/dL (32.0-36.0); MEAN CORPUSCULAR VOLUME 91.2 fL (79-99); PLATELET COUNT (AUTO) 269 K/uL (130-400); RED BLOOD CELL COUNT(AUTO) 4.53 MIL/uL (4.00-5.50); RED CELL DISTRIBUTION WIDTH 13.1 % (11.0-15.5)
[2022-10-06 07:46] LABS: APPEARANCE,URINE CLEAR (CLEAR); BILIRUBIN,URINE NEGATIVE (NEGATIVE); COLOR,URINE LIGHT-YELLOW (YELLOW); GLUCOSE, URINE (UA) NEGATIVE (NEGATIVE); KETONES,URINE NEGATIVE (NEGATIVE); LEUKOCYTE ESTERASE ,URINE NEGATIVE Leu/uL (NEGATIVE); NITRATE,URINE NEGATIVE (NEGATIVE); OCCULT BLOOD,URINE NEGATIVE (NEGATIVE); PH,URINE 6.5 (5.0-8.0); PROTEIN,URINE NEGATIVE (NEGATIVE); UROBILINOGEN,URINE 0.2 mg/dL (0.2-1.0)
[2022-10-06 07:48] LABS: HCG,QUALITATIVE URINE NEGATIVE (NEGATIVE)
[2022-10-06 07:55] LABS: CREATININE 0.7 mg/dL (0.5-1.5); POTASSIUM 3.8 mmol/L (3.5-5.1)
[2022-10-06 08:00] LABS: ALBUMIN 3.7 g/dL (3.5-5.0); TOTAL PROTEIN, SERUM 7.4 g/dL (6.0-8.3)
[2022-10-06 08:23] LABS: EOSINOPHILS % (MANUAL) 3 % (1-6); LYMPHOCYTES % (MANUAL) 47 % (22-44); MAN.DIFF COMMENT-IMPRESSION MANUAL DIFFERENTIAL; MONOCYTES % (MANUAL) 2 % (2-9); PLATELET MORPHOLOGY COMMENT ADEQUATE; SEGMENTED NEUTROPHILS % 48 % (40-70)
[2022-10-06] MEDS ORDERED: 0.9%NACL 1000ML 1,000 ML IV ONE (09:00)
[2022-10-06] MEDS ORDERED: DiphenhydrAMINE HCL 50 MG/ML VIAL IV ONE (09:00)
[2022-10-06] MEDS ORDERED: METOCLOPRAMIDE 10 MG/2 ML VIAL IVP ONE (09:00)
[2022-10-06] MEDS ORDERED: KETOROLAC 15MG/ML VIAL (15MG/ML) IM ONE (09:00)
[2022-10-06] MEDS ORDERED: KETOROLAC 15MG/ML VIAL (15MG/ML) IV ONE (09:00)
[2022-10-06 09:05] LABS: INR 1.02 (0.85-1.15); PROTHROMBIN TIME 11.8 SEC (9.6-11.6)
[2022-10-06 09:06] LABS: PARTIAL THROMBOPLASTIN TIME 28.3 SEC (26.3-35.5)
[2022-10-06 09:10] LABS: MAGNESIUM 1.8 mg/dL (1.80-2.40)
[2022-10-06] MEDS ORDERED: KETO10TA2 PO (10:12)
[2022-10-06 10:36] VITALS: BP 103/49
== END 2022-10-06 10:41 | disposition home or self-care (01) ==
LOC: EDH 07:20
DX: R07.89 Other chest pain (principal); R51.9 Headache, unspecified; M06.9 Rheumatoid arthritis, unspecified; M35.00 Sjogren syndrome, unspecified; Z79.899 Other long term (current) drug therapy; Z98.890 Other specified postprocedural states
CPT/HCPCS: 99285; 96374; 71045 ×2; 96361; 96375; 80061; 82550; 83735; 84484 ×2; 80053; 83880; 85025; 85378; 85610; 85730; 81003; 81025; 36415; 93005; J1200; J7030; J1885

== ENCOUNTER → 2023-03-15 | Outpatient (CLI) | payer OTHER ==
[~2023-03-15] MED LIST changes: +KETO10TA2 PO
[2023-03-15 16:11] LABS: BASOPHILS # (AUTO) 0.02 K/uL (0.00-0.20); BASOPHILS % (AUTO) 0.3 % (0.0-5.0); EOSINOPHILS # (AUTO) 0.42 K/uL (0.00-0.70); EOSINOPHILS % (AUTO) 7.1 % (0.0-8.0); HEMATOCRIT 39.8 % (36-48); IMMATURE GRANULOCYTE ABSOLUTE 0.01 K/uL (0-1); LYMPHOCYTES # (AUTO) 2.6 K/uL (1.0-4.8); LYMPHOCYTES % (AUTO) 44.3 % (21.0-51.0); MEAN CORPUSCULAR HEMOGLOBIN 31.9 pg (27.0-33.0); MEAN CORPUSCULAR HGB CONC 34.2 g/dL (32.0-36.0); MEAN CORPUSCULAR VOLUME 93.4 fL (79-99); MONOCYTES # (AUTO) 0.1 K/uL (0.1-1.0); MONOCYTES % (AUTO) 1.7 % (3.0-13.0); NEUTROPHILS # (AUTO) 2.8 K/uL (1.8-7.7); NEUTROPHILS % (AUTO) 46.4 % (40.0-77.0); PLATELET COUNT (AUTO) 282 K/uL (130-400); RED BLOOD CELL COUNT(AUTO) 4.26 MIL/uL (4.00-5.50); RED CELL DISTRIBUTION WIDTH 12.5 % (11.0-15.5); WHITE BLOOD COUNT (AUTO) 5.9 K/uL (4.8-10.8)
[2023-03-15 16:32] LABS: ALBUMIN 3.8 g/dL (3.5-5.0); BILIRUBIN,TOTAL 0.2 mg/dL (0.2-1.0); CREATININE 0.9 mg/dL (0.5-1.5); POTASSIUM 3.7 mmol/L (3.5-5.1); TOTAL PROTEIN, SERUM 7.7 g/dL (6.0-8.3)
[2023-03-15 17:15] LABS: ERYTHROCYTE SEDIMENTATION RATE 6 MM/HR (0-30)
== END | disposition home or self-care (01) ==
LOC: LAB 15:29
PROVIDERS: ATTEND Internal Medicine
DX: R06.02 Shortness of breath (principal); Z79.899 Other long term (current) drug therapy
CPT/HCPCS: 36415; 80053; 85025; 85651; 86140

== ENCOUNTER 2023-06-09 10:30 | Emergency (ER) | payer OTHER ==
[~2023-06-09] VITALS: Ht 162.6 cm; Wt 67.1 kg
[2023-06-09] MEDS: ASPIRIN 325MG TAB PO ONE (10:45)
[2023-06-09 10:48] LABS: BASOPHILS # (AUTO) 0.04 K/uL (0.00-0.20); BASOPHILS % (AUTO) 0.3 % (0.0-5.0); EOSINOPHILS # (AUTO) 0.32 K/uL (0.00-0.70); HEMATOCRIT 42.4 % (36-48); IMMATURE GRANULOCYTE ABSOLUTE 0.07 K/uL (0-1); LYMPHOCYTES # (AUTO) 1.6 K/uL (1.0-4.8); LYMPHOCYTES % (AUTO) 10.4 % (21.0-51.0); MEAN CORPUSCULAR HEMOGLOBIN 32.4 pg (27.0-33.0); MEAN CORPUSCULAR VOLUME 95.3 fL (79-99); MONOCYTES # (AUTO) 0.3 K/uL (0.1-1.0); NEUTROPHILS # (AUTO) 13.3 K/uL (1.8-7.7); NEUTROPHILS % (AUTO) 84.9 % (40.0-77.0); PLATELET COUNT (AUTO) 247 K/uL (130-400); RED BLOOD CELL COUNT(AUTO) 4.45 MIL/uL (4.00-5.50); RED CELL DISTRIBUTION WIDTH 13.5 % (11.0-15.5); WHITE BLOOD COUNT (AUTO) 15.7 K/uL (4.8-10.8)
[2023-06-09 10:57] LABS: CREATININE 0.6 mg/dL (0.5-1.5); POTASSIUM 3.6 mmol/L (3.5-5.1)
[2023-06-09 11:01] LABS: BILIRUBIN,TOTAL 0.6 mg/dL (0.2-1.0); MAGNESIUM 1.9 mg/dL (1.80-2.40); TOTAL PROTEIN, SERUM 7.9 g/dL (6.0-8.3)
[2023-06-09] MEDS: KETOROLAC 30MG VIAL (30MG/ML) IVP ONE (11:51)
[2023-06-09 11:59] LABS: APPEARANCE,URINE CLEAR (CLEAR); BILIRUBIN,URINE NEGATIVE (NEGATIVE); COLOR,URINE COLORLESS (YELLOW); GLUCOSE, URINE (UA) NEGATIVE (NEGATIVE); KETONES,URINE NEGATIVE (NEGATIVE); LEUKOCYTE ESTERASE ,URINE NEGATIVE Leu/uL (NEGATIVE); NITRATE,URINE NEGATIVE (NEGATIVE); OCCULT BLOOD,URINE NEGATIVE (NEGATIVE); PROTEIN,URINE NEGATIVE (NEGATIVE); UROBILINOGEN,URINE 0.2 mg/dL (0.2-1.0)
[2023-06-09 12:00] LABS: ADD UA MICROSCOPIC NO
[2023-06-09 12:24] VITALS: O2SAT 98
[2023-06-09 14:12] VITALS: BP 101/105; PULSE 64; RESP 16
[2023-06-09] MEDS ORDERED: IBUP-2070 PO (15:15)
== END 2023-06-09 16:01 | disposition home or self-care (01) ==
LOC: EDH 10:30
DX: R07.89 Other chest pain (principal); M19.90 Unspecified osteoarthritis, unspecified site; Z79.899 Other long term (current) drug therapy; Z98.890 Other specified postprocedural states
CPT/HCPCS: 99285; 96374; 71045; 83735; 84484 ×2; 80053; 85025; 85378; 81003; 36415; 93005; J1885

== ENCOUNTER 2023-06-10 23:34 | Emergency (ER) | payer OTHER ==
[~2023-06-10] VITALS: Ht 162.6 cm; Wt 65.3 kg
[~2023-06-10 23:34] MED LIST changes: +IBUP-2070 PO
[2023-06-10 23:37] VITALS: BP 107/57; PULSE 79; RESP 20
[2023-06-11 00:08] LABS: RAPID GROUP A STREP negative (NEGATIVE)
[2023-06-11 00:14] LABS: SARS-CoV-2, RNA, NAAT NEGATIVE SARS CoV-2 (NEGATIVE)
[2023-06-11 00:55] LABS: INFLUENZA TYPE A Negative For Type A (NEGATIVE); INFLUENZA TYPE B Negative For Type B (NEGATIVE)
== END 2023-06-11 05:36 | disposition left against medical advice (07) ==
LOC: EDH 23:34
DX: R06.02 Shortness of breath (principal); R07.9 Chest pain, unspecified; Z20.822 Contact with and (suspected) exposure to COVID-19; Z53.21 Procedure and treatment not carried out due to patient leaving prior to being seen by health care provider
CPT/HCPCS: 87635; 87804; 87880; 93005; 99281

== ENCOUNTER 2023-06-13 11:49 | Emergency (ER) | payer OTHER ==
[~2023-06-13] VITALS: Ht 162.6 cm; Wt 65.8 kg
[2023-06-13 13:02] LABS: BASOPHILS % (AUTO) 0.6 % (0.0-5.0); EOSINOPHILS # (AUTO) 0.05 K/uL (0.00-0.70); EOSINOPHILS % (AUTO) 0.3 % (0.0-8.0); HEMATOCRIT 38.1 % (36-48); IMMATURE GRANULOCYTE ABSOLUTE 0.18 K/uL (0-1); LYMPHOCYTES # (AUTO) 0.7 K/uL (1.0-4.8); LYMPHOCYTES % (AUTO) 4.5 % (21.0-51.0); MEAN CORPUSCULAR HEMOGLOBIN 32.9 pg (27.0-33.0); MEAN CORPUSCULAR VOLUME 91.6 fL (79-99); MONOCYTES # (AUTO) 0.6 K/uL (0.1-1.0); MONOCYTES % (AUTO) 3.7 % (3.0-13.0); NEUTROPHILS # (AUTO) 14.4 K/uL (1.8-7.7); NEUTROPHILS % (AUTO) 89.8 % (40.0-77.0); PLATELET COUNT (AUTO) 298 K/uL (130-400); RED BLOOD CELL COUNT(AUTO) 4.16 MIL/uL (4.00-5.50); RED CELL DISTRIBUTION WIDTH 13.2 % (11.0-15.5); WHITE BLOOD COUNT (AUTO) 16.1 K/uL (4.8-10.8)
[2023-06-13 13:43] LABS: ALBUMIN 3.1 g/dL (3.5-5.0); BILIRUBIN,TOTAL 0.5 mg/dL (0.2-1.0); CREATININE 0.6 mg/dL (0.5-1.5); POTASSIUM 3.2 mmol/L (3.5-5.1); TOTAL PROTEIN, SERUM 6.8 g/dL (6.0-8.3)
[2023-06-13] MEDS: CEFTRIAXONE 2GM VIAL IVPB ONE (15:25)
[2023-06-13] MEDS: AZITHROMYCIN 250 MG TABLET PO ONE (15:25)
[2023-06-13] MEDS: ALBUTEROL 0.083% 2.5 MG/3 ML INH IH ONE (15:45)
[2023-06-13 15:46] VITALS: PULSE 95; RESP 21
[2023-06-13] MEDS: POTASSIUM CHLORIDE 10% ELIXIR 20 MEQ/15 ML UDCUP PO ONE (15:55)
[2023-06-13] MEDS ORDERED: ALBU90AE2 IH (16:08)
[2023-06-13] MEDS ORDERED: AZIT500T PO (16:08)
[2023-06-13 16:26] VITALS: BP 99/39; PULSE 102; RESP 18; O2SAT 97
== END 2023-06-13 16:45 | disposition home or self-care (01) ==
LOC: EDH 11:49
DX: J18.9 Pneumonia, unspecified organism (principal); M19.90 Unspecified osteoarthritis, unspecified site; Z79.899 Other long term (current) drug therapy; Z98.890 Other specified postprocedural states
CPT/HCPCS: 99284; 96365; 71045; 84484 ×2; 80053; 85025; 36415; 93005; 94640; J0696

== ENCOUNTER → 2023-06-28 | Outpatient (CLI) | payer OTHER ==
[~2023-06-28] MED LIST changes: +ALBU90AE2 IH; +AZIT500T PO
[2023-06-28 08:38] LABS: BASOPHILS # (AUTO) 0.02 K/uL (0.00-0.20); BASOPHILS % (AUTO) 0.5 % (0.0-5.0); EOSINOPHILS # (AUTO) 0.12 K/uL (0.00-0.70); EOSINOPHILS % (AUTO) 3.1 % (0.0-8.0); HEMATOCRIT 41.4 % (36-48); LYMPHOCYTES # (AUTO) 2.2 K/uL (1.0-4.8); LYMPHOCYTES % (AUTO) 56.7 % (21.0-51.0); MEAN CORPUSCULAR HEMOGLOBIN 32.3 pg (27.0-33.0); MEAN CORPUSCULAR HGB CONC 34.1 g/dL (32.0-36.0); MEAN CORPUSCULAR VOLUME 94.7 fL (79-99); MONOCYTES # (AUTO) 0.2 K/uL (0.1-1.0); MONOCYTES % (AUTO) 4.9 % (3.0-13.0); NEUTROPHILS # (AUTO) 1.4 K/uL (1.8-7.7); NEUTROPHILS % (AUTO) 34.8 % (40.0-77.0); PLATELET COUNT (AUTO) 380 K/uL (130-400); RED BLOOD CELL COUNT(AUTO) 4.37 MIL/uL (4.00-5.50); RED CELL DISTRIBUTION WIDTH 13.2 % (11.0-15.5); WHITE BLOOD COUNT (AUTO) 3.9 K/uL (4.8-10.8)
[2023-06-28 08:59] LABS: ALBUMIN 3.5 g/dL (3.5-5.0); BILIRUBIN,TOTAL 0.4 mg/dL (0.2-1.0); CREATININE 0.7 mg/dL (0.5-1.0); POTASSIUM 3.9 mmol/L (3.5-5.1); THYROID STIMULATING HORMONE 1.52 uIU/mL (0.36-3.74); TOTAL PROTEIN, SERUM 7.1 g/dL (6.0-8.3)
== END | disposition home or self-care (01) ==
LOC: LAB 08:12
PROVIDERS: ATTEND Internal Medicine
DX: Z13.220 Encounter for screening for lipoid disorders (principal); Z13.29 Encounter for screening for other suspected endocrine disorder; Z00.00 Encounter for general adult medical examination without abnormal findings
CPT/HCPCS: 36415; 80053; 80061; 84443; 85025

== ENCOUNTER → 2023-07-09 | Outpatient (CLI) | payer OTHER ==
[2023-07-09 08:38] LABS: BASOPHILS # (AUTO) 0.02 K/uL (0.00-0.20); BASOPHILS % (AUTO) 0.3 % (0.0-5.0); EOSINOPHILS % (AUTO) 5.1 % (0.0-8.0); HEMATOCRIT 43.1 % (36-48); IMMATURE GRANULOCYTE ABSOLUTE 0.01 K/uL (0-1); LYMPHOCYTES # (AUTO) 2.9 K/uL (1.0-4.8); LYMPHOCYTES % (AUTO) 49.6 % (21.0-51.0); MEAN CORPUSCULAR HGB CONC 34.1 g/dL (32.0-36.0); MEAN CORPUSCULAR VOLUME 93.9 fL (79-99); MONOCYTES # (AUTO) 0.3 K/uL (0.1-1.0); MONOCYTES % (AUTO) 4.9 % (3.0-13.0); NEUTROPHILS # (AUTO) 2.3 K/uL (1.8-7.7); NEUTROPHILS % (AUTO) 39.9 % (40.0-77.0); PLATELET COUNT (AUTO) 255 K/uL (130-400); RED BLOOD CELL COUNT(AUTO) 4.59 MIL/uL (4.00-5.50); RED CELL DISTRIBUTION WIDTH 13.1 % (11.0-15.5); WHITE BLOOD COUNT (AUTO) 5.9 K/uL (4.8-10.8)
[2023-07-09 08:57] LABS: ALBUMIN 3.8 g/dL (3.5-5.0); BILIRUBIN,TOTAL 0.5 mg/dL (0.2-1.0); CREATININE 0.7 mg/dL (0.5-1.0); POTASSIUM 4.1 mmol/L (3.5-5.1); TOTAL PROTEIN, SERUM 7.6 g/dL (6.0-8.3)
[2023-07-09 10:17] LABS: ERYTHROCYTE SEDIMENTATION RATE 4 MM/HR (0-30)
== END | disposition home or self-care (01) ==
LOC: LAB 07:22
PROVIDERS: ATTEND Internal Medicine
DX: Z79.899 Other long term (current) drug therapy (principal)
CPT/HCPCS: 36415; 80053; 85025; 85651; 86140

== ENCOUNTER → 2023-10-13 | Outpatient (CLI) | payer OTHER ==
[~2023-10-13] MED LIST changes: -ALBU90AE2 IH; +ALBU90AE3 IH
[2023-10-13 09:43] LABS: BASOPHILS # (AUTO) 0.01 K/uL (0.00-0.20); BASOPHILS % (AUTO) 0.2 % (0.0-5.0); EOSINOPHILS # (AUTO) 0.29 K/uL (0.00-0.70); EOSINOPHILS % (AUTO) 5.5 % (0.0-8.0); HEMATOCRIT 40.5 % (36-48); IMMATURE GRANULOCYTE ABSOLUTE 0.01 K/uL (0-1); LYMPHOCYTES # (AUTO) 2.5 K/uL (1.0-4.8); LYMPHOCYTES % (AUTO) 47.2 % (21.0-51.0); MEAN CORPUSCULAR HEMOGLOBIN 32.3 pg (27.0-33.0); MEAN CORPUSCULAR HGB CONC 34.3 g/dL (32.0-36.0); MEAN CORPUSCULAR VOLUME 94.2 fL (79-99); MONOCYTES # (AUTO) 0.3 K/uL (0.1-1.0); MONOCYTES % (AUTO) 5.2 % (3.0-13.0); NEUTROPHILS # (AUTO) 2.2 K/uL (1.8-7.7); NEUTROPHILS % (AUTO) 41.7 % (40.0-77.0); PLATELET COUNT (AUTO) 268 K/uL (130-400); RED CELL DISTRIBUTION WIDTH 13.1 % (11.0-15.5); WHITE BLOOD COUNT (AUTO) 5.2 K/uL (4.8-10.8)
[2023-10-13 10:02] LABS: ALBUMIN 3.8 g/dL (3.5-5.0); BILIRUBIN,TOTAL 0.5 mg/dL (0.2-1.0); CREATININE 0.7 mg/dL (0.5-1.0); POTASSIUM 3.8 mmol/L (3.5-5.1); TOTAL PROTEIN, SERUM 7.5 g/dL (6.0-8.3)
[2023-10-13 10:52] LABS: ERYTHROCYTE SEDIMENTATION RATE 4 MM/HR (0-30)
== END | disposition home or self-care (01) ==
LOC: LAB 10-08 09:51
PROVIDERS: ATTEND Internal Medicine
DX: Z79.899 Other long term (current) drug therapy (principal)
CPT/HCPCS: 36415; 80053; 85025; 85651; 86140

== ENCOUNTER → 2023-12-21 | Outpatient (CLI) | payer OTHER ==
[2023-12-21 08:29] LABS: BASOPHILS # (AUTO) 0.01 K/uL (0.00-0.20); BASOPHILS % (AUTO) 0.3 % (0.0-5.0); EOSINOPHILS # (AUTO) 0.42 K/uL (0.00-0.70); EOSINOPHILS % (AUTO) 10.6 % (0.0-8.0); HEMATOCRIT 41.3 % (36-48); IMMATURE GRANULOCYTE ABSOLUTE 0.01 K/uL (0-1); LYMPHOCYTES % (AUTO) 51.3 % (21.0-51.0); MEAN CORPUSCULAR HEMOGLOBIN 31.7 pg (27.0-33.0); MEAN CORPUSCULAR HGB CONC 33.4 g/dL (32.0-36.0); MEAN CORPUSCULAR VOLUME 94.7 fL (79-99); MONOCYTES # (AUTO) 0.2 K/uL (0.1-1.0); MONOCYTES % (AUTO) 5.8 % (3.0-13.0); NEUTROPHILS # (AUTO) 1.3 K/uL (1.8-7.7); NEUTROPHILS % (AUTO) 31.7 % (40.0-77.0); PLATELET COUNT (AUTO) 245 K/uL (130-400); RED BLOOD CELL COUNT(AUTO) 4.36 MIL/uL (4.00-5.50); RED CELL DISTRIBUTION WIDTH 12.5 % (11.0-15.5)
[2023-12-21 08:55] LABS: ALBUMIN 3.7 g/dL (3.5-5.0); BILIRUBIN,TOTAL 0.5 mg/dL (0.2-1.0); CREATININE 0.7 mg/dL (0.5-1.0); POTASSIUM 3.9 mmol/L (3.5-5.1); THYROID STIMULATING HORMONE 1.06 uIU/mL (0.36-3.74); TOTAL PROTEIN, SERUM 7.4 g/dL (6.0-8.3)
== END | disposition home or self-care (01) ==
LOC: LAB 07:48
PROVIDERS: ATTEND Internal Medicine
DX: Z13.220 Encounter for screening for lipoid disorders (principal); Z00.00 Encounter for general adult medical examination without abnormal findings
CPT/HCPCS: 36415; 80053; 80061; 84443; 85025

== ENCOUNTER → 2024-02-18 | Outpatient (CLI) | payer OTHER ==
[2024-02-18 08:05] LABS: BASOPHILS # (AUTO) 0.01 K/uL (0.00-0.20); BASOPHILS % (AUTO) 0.2 % (0.0-5.0); EOSINOPHILS # (AUTO) 0.26 K/uL (0.00-0.70); EOSINOPHILS % (AUTO) 5.4 % (0.0-8.0); IMMATURE GRANULOCYTE ABSOLUTE 0.01 K/uL (0-1); LYMPHOCYTES % (AUTO) 40.8 % (21.0-51.0); MEAN CORPUSCULAR HEMOGLOBIN 31.9 pg (27.0-33.0); MEAN CORPUSCULAR VOLUME 93.7 fL (79-99); MONOCYTES # (AUTO) 0.3 K/uL (0.1-1.0); MONOCYTES % (AUTO) 6.3 % (3.0-13.0); NEUTROPHILS # (AUTO) 2.3 K/uL (1.8-7.7); NEUTROPHILS % (AUTO) 47.1 % (40.0-77.0); PLATELET COUNT (AUTO) 374 K/uL (130-400); RED BLOOD CELL COUNT(AUTO) 4.27 MIL/uL (4.00-5.50); RED CELL DISTRIBUTION WIDTH 12.3 % (11.0-15.5); WHITE BLOOD COUNT (AUTO) 4.8 K/uL (4.8-10.8)
[2024-02-18 08:46] LABS: ALBUMIN 3.6 g/dL (3.5-5.0); BILIRUBIN,TOTAL 0.4 mg/dL (0.2-1.0); CREATININE 0.6 mg/dL (0.5-1.0); TOTAL PROTEIN, SERUM 7.9 g/dL (6.0-8.3)
[2024-02-18 09:10] LABS: ERYTHROCYTE SEDIMENTATION RATE 20 MM/HR (0-30)
== END | disposition home or self-care (01) ==
LOC: LAB 07:15
PROVIDERS: ATTEND Internal Medicine
DX: Z79.899 Other long term (current) drug therapy (principal)
CPT/HCPCS: 36415; 80053; 85025; 85651; 86140

== ENCOUNTER → 2024-05-03 | Outpatient (CLI) | payer OTHER ==
[2024-05-03 08:41] LABS: BASOPHILS # (AUTO) 0.01 K/uL (0.00-0.20); BASOPHILS % (AUTO) 0.3 % (0.0-5.0); EOSINOPHILS # (AUTO) 0.29 K/uL (0.00-0.70); EOSINOPHILS % (AUTO) 7.8 % (0.0-8.0); HEMATOCRIT 42.2 % (36-48); IMMATURE GRANULOCYTE ABSOLUTE 0.01 K/uL (0-1); LYMPHOCYTES # (AUTO) 2.1 K/uL (1.0-4.8); LYMPHOCYTES % (AUTO) 55.3 % (21.0-51.0); MEAN CORPUSCULAR HEMOGLOBIN 31.2 pg (27.0-33.0); MEAN CORPUSCULAR HGB CONC 33.4 g/dL (32.0-36.0); MEAN CORPUSCULAR VOLUME 93.4 fL (79-99); MONOCYTES # (AUTO) 0.2 K/uL (0.1-1.0); MONOCYTES % (AUTO) 5.1 % (3.0-13.0); NEUTROPHILS # (AUTO) 1.2 K/uL (1.8-7.7); NEUTROPHILS % (AUTO) 31.2 % (40.0-77.0); PLATELET COUNT (AUTO) 279 K/uL (130-400); RED BLOOD CELL COUNT(AUTO) 4.52 MIL/uL (4.00-5.50); RED CELL DISTRIBUTION WIDTH 13.1 % (11.0-15.5); WHITE BLOOD COUNT (AUTO) 3.7 K/uL (4.8-10.8)
[2024-05-03 09:01] LABS: ALBUMIN 3.6 g/dL (3.5-5.0); BILIRUBIN,TOTAL 0.6 mg/dL (0.2-1.0); CREATININE 0.6 mg/dL (0.5-1.0); POTASSIUM 3.8 mmol/L (3.5-5.1); THYROID STIMULATING HORMONE 0.92 uIU/mL (0.36-3.74); TOTAL PROTEIN, SERUM 7.4 g/dL (6.0-8.3)
== END | disposition home or self-care (01) ==
LOC: LAB 07:49
PROVIDERS: ATTEND Internal Medicine
DX: K21.9 Gastro-esophageal reflux disease without esophagitis (principal); E83.51 Hypocalcemia; D72.819 Decreased white blood cell count, unspecified; K80.20 Calculus of gallbladder without cholecystitis without obstruction
CPT/HCPCS: 36415; 80053; 80061; 84443; 85025

== ENCOUNTER → 2024-05-05 | Outpatient (CLI) | payer OTHER ==
--- NOTE | 2024-05-05 15:51 | HMCIMG ---
CT ABDOMEN/PELVIS W/O CONTRAST REASON: BLOATING, ABD PAIN COMPARISON: None. FINDINGS: Lung bases are clear. There are partially visualized breast implants, no evidence of rupture. There are no focal liver lesions. There are normal-appearing kidneys.. Spleen and pancreas appear unremarkable. There are stones in an otherwise normal-appearing gallbladder. Bowel loops appear unremarkable. This includes normal appearance of the appendix There is no evidence of free fluid or intraperitoneal air. There are no focal fluid collections. Aorta and retroperitoneum appear normal as do pelvic soft tissue structures. The anterior abdominal wall is intact. Osseous structures appear unremarkable. IMPRESSION: 1. Negative noncontrast CT abdomen and pelvis. CT was performed with one or more following dose reduction techniques: automated exposure control, adjustment of the mA and kv according to patient's size, or use of a iterative reconstruction technique.
== END | disposition home or self-care (01) ==
LOC: RAH 14:01
PROVIDERS: ATTEND Internal Medicine
DX: R10.9 Unspecified abdominal pain (principal); R10.2 Pelvic and perineal pain
CPT/HCPCS: 74176

== ENCOUNTER → 2024-05-18 | Outpatient (CLI) | payer OTHER ==
--- NOTE | 2024-05-18 15:51 | HMCIMG ---
KNEE 3VWS LT HISTORY: Knee pain COMPARISON: None TECHNIQUE: 3 images of left knee were obtained. FINDINGS: There is no acute displaced fracture or dislocation. Degenerative changes are seen. IMPRESSION: 1. Findings as described above.
== END | disposition home or self-care (01) ==
LOC: RAH 14:59
PROVIDERS: ATTEND Internal Medicine
DX: M17.12 Unilateral primary osteoarthritis, left knee (principal); M25.562 Pain in left knee
CPT/HCPCS: 73562

== ENCOUNTER → 2024-06-02 | Outpatient (CLI) | payer OTHER ==
--- NOTE | 2024-06-02 09:17 | HMCIMG ---
MAMMO SCREENING IMPLANT HISTORY: Screening mammogram. COMPARISON: 12/22/2019 TECHNIQUE: Bilateral screening mammogram with CAD was performed with craniocaudal and mediolateral oblique projections. Additional pushback views were obtained. FINDINGS: There is right implant deformity suggestive of rupture. Left breast implant is also seen. There are scattered areas of fibroglandular density. There is no evidence of a dominant mass, or suspicious microcalcification. There is no evidence of nipple retraction or skin thickening. IMPRESSION: 1. Stable mammogram. Findings suggestive of right implant rupture. Patient was entered into a reminder system with a target due date for their next mammogram. BI-RADS: CATEGORY 2: BENIGN FINDINGS Recommend monthly self breast exam as well as annual clinical examination. A negative x-ray should not delay biopsy if a dominant or clinically suspicious mass is present, since 8-10% of cancers are not identified by mammography. Dense breasts particularly, may obscure an underlying neoplasm. Some of these may be detected clinically and therefore, clinical examination is an essential part of breast evaluation.
--- NOTE | 2024-06-02 15:07 | HMCIMG ---
MR KNEE LEFT WO HISTORY: Pain COMPARISON: None TECHNIQUE: MRI of the left knee was performed utilizing multiple pulse sequences in axial, coronal and sagittal planes. Patient was not given contrast through intravenous route. FINDINGS: Increased signal intensity is seen involving the lateral aspect of the distal femur consistent with bone bruise (microtrabecular fracture) seen. The anterior cruciate and posterior cruciate ligaments are grossly intact. The medial and lateral collateral ligaments are also intact. Quadriceps tendon and patellar tendon are within normal limits. There is subtle medial meniscal tear involving posterior horn with superior articular extension. There is lateral meniscal tear involving body with both superior and inferior articular extension. No evidence of Wray's cyst is seen. IMPRESSION: 1. Increased signal intensity is seen involving the lateral aspect of the distal femur consistent with bone bruise (microtrabecular fracture) seen. Subtle meniscal tear involving posterior horn with superior extension. Lateral meniscal tear.
== END | disposition home or self-care (01) ==
LOC: RAH 07:37
PROVIDERS: ATTEND Internal Medicine
DX: Z12.31 Encounter for screening mammogram for malignant neoplasm of breast (principal); S83.282A Other tear of lateral meniscus, current injury, left knee, initial encounter; R92.323 Mammographic fibroglandular density, bilateral breasts; M25.562 Pain in left knee; N64.89 Other specified disorders of breast; X58.XXXA Exposure to other specified factors, initial encounter; Y93.89 Activity, other specified; Y92.89 Other specified places as the place of occurrence of the external cause; Y99.8 Other external cause status
CPT/HCPCS: 73721; 77067

== ENCOUNTER → 2024-10-04 | Outpatient (CLI) | payer OTHER ==
[2024-10-04 07:56] LABS: IMMATURE GRANULOCYTE ABSOLUTE 0.01 K/uL (0-1); NUCLEATED RED BLOOD CELLS 0.0 % (0.0-0.19); PLATELET COUNT (AUTO) 276 K/uL (130-400); RED BLOOD CELL COUNT(AUTO) 4.60 MIL/uL (4.00-5.50); RED CELL DISTRIBUTION WIDTH 13.2 % (11.0-15.5); WHITE BLOOD COUNT (AUTO) 5.3 K/uL (4.8-10.8)
[2024-10-04 08:27] LABS: ASPARTATE AMINOTRANSFERASE 33.0 U/L (10-37); CREATININE 0.9 mg/dL (0.5-1.0); GLOMERULAR FILTR. RATE CALC 76.0 mL/min (>90); GLUCOSE,RANDOM 84.0 mg/dL (70-105); SODIUM SERUM 140.0 mmol/L (136-145); TOTAL PROTEIN, SERUM 7.1 g/dL (6.0-8.3); UREA NITROGEN, BLOOD 14.0 mg/dL (7-18)
[2024-10-04 09:26] LABS: ERYTHROCYTE SEDIMENTATION RATE 5 MM/HR (0-30)
== END | disposition home or self-care (01) ==
LOC: LAB 07:31
PROVIDERS: ATTEND Internal Medicine
DX: Z79.899 Other long term (current) drug therapy (principal)
CPT/HCPCS: 36415; 80053; 85025; 85651; 86140

== ENCOUNTER → 2024-12-13 | Outpatient (CLI) | payer OTHER ==
[~2024-12-13] MED LIST changes: +IBUP-1492 PO; -IBUP-2070 PO
[2024-12-13 07:54] LABS: IMMATURE GRANULOCYTE ABSOLUTE 0.00 K/uL (0-1); NUCLEATED RED BLOOD CELLS 0.0 % (0.0-0.19); PLATELET COUNT (AUTO) 236 K/uL (130-400); RED BLOOD CELL COUNT(AUTO) 4.40 MIL/uL (4.00-5.50); RED CELL DISTRIBUTION WIDTH 13.2 % (11.0-15.5); WHITE BLOOD COUNT (AUTO) 5.0 K/uL (4.8-10.8)
[2024-12-13 08:17] LABS: ASPARTATE AMINOTRANSFERASE 23.0 U/L (10-37); CREATININE 0.7 mg/dL (0.5-1.0); GLOMERULAR FILTR. RATE CALC 103.0 mL/min (>90); GLUCOSE,RANDOM 85.0 mg/dL (70-105); LDL DIRECT 101.0 mg/dL (0-99); SODIUM SERUM 140.0 mmol/L (136-145); TOTAL PROTEIN, SERUM 7.0 g/dL (6.0-8.3); UREA NITROGEN, BLOOD 13.0 mg/dL (7-18)
== END | disposition home or self-care (01) ==
LOC: LAB 07:25
PROVIDERS: ATTEND Internal Medicine
DX: K21.9 Gastro-esophageal reflux disease without esophagitis (principal); E83.51 Hypocalcemia
CPT/HCPCS: 36415; 80053; 80061; 85025

== ENCOUNTER → 2025-02-07 | Outpatient (CLI) | payer OTHER ==
[2025-02-07 07:58] LABS: IMMATURE GRANULOCYTE ABSOLUTE 0.01 K/uL (0-1); NUCLEATED RED BLOOD CELLS 0.0 % (0.0-0.19); PLATELET COUNT (AUTO) 231 K/uL (130-400); RED BLOOD CELL COUNT(AUTO) 4.55 MIL/uL (4.00-5.50); RED CELL DISTRIBUTION WIDTH 13.0 % (11.0-15.5); WHITE BLOOD COUNT (AUTO) 4.8 K/uL (4.8-10.8)
[2025-02-07 08:10] LABS: ASPARTATE AMINOTRANSFERASE 23.0 U/L (10-37); CREATININE 0.6 mg/dL (0.5-1.0); GLOMERULAR FILTR. RATE CALC 107.0 mL/min (>90); GLUCOSE,RANDOM 92.0 mg/dL (70-105); SODIUM SERUM 139.0 mmol/L (136-145); TOTAL PROTEIN, SERUM 7.5 g/dL (6.0-8.3); UREA NITROGEN, BLOOD 12.0 mg/dL (7-18)
[2025-02-07 08:11] LABS: ERYTHROCYTE SEDIMENTATION RATE 2 MM/HR (0-30)
== END | disposition home or self-care (01) ==
LOC: LAB 07:29
PROVIDERS: ATTEND Internal Medicine
DX: Z79.899 Other long term (current) drug therapy (principal)
CPT/HCPCS: 36415; 80053; 85025; 85651; 86140